=== PATIENT | female | born 1995 | race Caucasian/White ===

== ENCOUNTER 2021-08-02 21:55 | Emergency (ER) | payer OTHER ==
[2021-08-02 22:11] LABS: BASOPHILS # (AUTO) 0.1 10^3/uL (0.0-0.1); BASOPHILS % (AUTO) 0.6 %; EOSINOPHILS # (AUTO) 0.1 10^3/uL (0.0-0.7); EOSINOPHILS % (AUTO) 0.5 %; HCT - HEMATOCRIT 42.3 % (37.0-47.0); HGB - HEMOGLOBIN 13.8 g/dL (12.0-16.0); LYMPHOCYTES # (AUTO) 3.5 10^3/uL (1.5-3.5); LYMPHOCYTES % (AUTO) 36.4 %; MEAN CORPUSCULAR HEMOGLOBIN 31.7 pg (27.0-31.0); MEAN CORPUSCULAR HGB CONC 32.6 g/dL (32.0-36.0); MEAN PLATELET VOLUME 10.3 fL (7.9-10.8); MONOCYTES # (AUTO) 0.9 10^3/uL (0.0-1.0); MONOCYTES % (AUTO) 9.4 %; NEUTROPHILS % (AUTO) 52.8 %; PLT - PLATELET COUNT 287 10^3/uL (130-450); RED BLOOD COUNT 4.36 10^6/uL (4.20-5.40); RED CELL DISTRIBUTION WIDTH 11.6 % (12.0-15.0); WHITE BLOOD COUNT 9.5 x10^3/uL (4.8-10.8)
[2021-08-02] MEDS ORDERED: ADENOSINE 6 MG/2 ML VIAL IVP ONE (22:12)
[2021-08-02 22:26] LABS: ALBUMIN 4.8 g/dL (3.2-5.5); ALBUMIN/GLOBULIN RATIO 1.7 (1.0-2.2); BILIRUBIN,TOTAL 0.6 mg/dL (0.2-1.0); CALCIUM 9.5 mg/dL (8.5-10.3); CREATININE 0.8 mg/dL (0.4-1.0); POTASSIUM 3.2 mmol/L (3.5-5.0); TOTAL PROTEIN 7.7 g/dL (6.7-8.2)
[2021-08-02] MEDS ORDERED: POTASSIUM CHLORIDE 20 MEQ/15 ML UDC PO STA (22:31)
--- NOTE | 2021-08-02 22:32 | ED Physician Documentation ---
History of Present Illness - Stated complaint Stated Complaint: SOA/DIZZY/ELEVATED HEART RATE - Chief complaint Chief Complaint: Cardiac - History obtained from History obtained from: Patient - Additonal information Additional information: 25-year-old woman with history of SVT presents with palpitations starting around 945 this evening while working. She states that she felt normal earlier in the day and feels normal now except for some lightheadedness and palpitations. She attempted vagal maneuvers prior to coming in but was unsuccessful. Denies chest pain, shortness of breath, nausea. Review of Systems Ten Systems: 10 systems reviewed and negative Constitutional: denies: Fever Cardiac: reports: Palpitations. 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 - Past Surgical History Past Surgical History: No - Present Medications Home Medications: Ambulatory Orders Medication Instructions Recorded Confirmed atenoloL [Tenormin] 25 mg PO DAILY PRN 08/02/21 08/02/21 - Allergies Allergies/Adverse Reactions: Allergies Allergy/AdvReac Type Severity Reaction Status Date / Time No Known Drug Allergies Allergy Verified 08/02/21 22:00 - Social History Does the pt smoke?: No Smoking Status: Never smoker Does the pt have substance abuse?: No - Immunizations Immunizations are current?: Yes - POLST Patient has POLST: No PD ED PE NORMAL - Vitals Vital signs reviewed: Yes - General General: Alert and oriented X 3, No acute distress, Well developed/nourished - HEENT HEENT: Atraumatic, PERRL, EOMI, Moist mucous membranes - Neck Neck: Supple, no meningeal sign - Cardiac Cardiac: Other (Tachycardic rate, regular rhythm) - Respiratory Respiratory: No respiratory distress, Clear bilaterally - Abdomen Abdomen: Non tender, Non distended - Derm Derm: Normal color, Warm and dry - Extremities Extremities: No deformity - Neuro Neuro: Alert and oriented X 3 - Psych Psych: Normal mood, Normal affect Results - Vitals Vitals: Vital Signs - 24 hr 08/02/21 08/02/21 08/02/21 22:00 22:10 22:12 Temperature 36.5 C Heart Rate 200 H 208 H 177 H Respiratory 20 29 H 20 Rate Blood Pressure 133/94 H 116/93 H 131/92 H O2 Saturation 98 100 100 08/02/21 08/02/21 08/02/21 22:18 22:23 22:37 Temperature Heart Rate 100 92 94 Respiratory 15 25 H 23 Rate Blood Pressure 132/92 H 121/99 H 119/81 H O2 Saturation 100 98 99 Oxygen O2 Source Nasal cannula Oxygen Flow Rate 2 - EKG (time done) 2205 Rate: Rate (enter#) (173) Rhythm: Sinus tachycardia [place]: Normal QRS: Normal Ischemia: Normal ST segments Other comments: Other comments (no discernable P waves) Computer interpretation: Disagree with computer (EKG is c/w SVT) 2215 Rate: Rate (enter#) (107) Rhythm: NSR [place]: Normal Intervals: Normal NC QRS: Normal Ischemia: Normal ST segments - Labs Labs: Laboratory Tests 08/02/21 08/02/21 08/02/21 22:05 22:05 22:05 WBC 9.5 RBC 4.36 Hgb 13.8 Hct 42.3 MCV 97.0 MCH 31.7 H MCHC 32.6 RDW 11.6 L Plt Count 287 MPV 10.3 Neut # (Auto) 5.0 Lymph # (Auto) 3.5 [place] # (Auto) 0.9 Eos # (Auto) 0.1 Baso # (Auto) 0.1 Absolute Nucleated RBC 0.00 Nucleated RBC % 0.0 Sodium 140 Potassium 3.2 L Chloride 103 Carbon Dioxide 26 Anion Gap 11.0 BUN 19 Creatinine 0.8 Estimated GFR (MDRD) 86 L Glucose 114 H Calcium 9.5 Total Bilirubin 0.6 AST 26 ALT 20 Alkaline Phosphatase 62 Troponin I High Sens 3.5 Total Protein 7.7 Albumin 4.8 Globulin 2.9 Albumin/Globulin Ratio 1.7 Lipase 37 Procedures - General procedure General procedure: Patient presented with tachyarrhythmia consistent with SVT. Vagal maneuvers attempted (blowing to 10 cc syringe and lying down with legs up) without success. 6 mg IV adenosine then administered with out improvement and then 12 of IV adenosine administered with reversion to normal sinus rhythm. Patient tolerated well. She was on the teletypesetter monitor and had no issues. 100% oxygen on RA however 2 L of nasal cannula oxygen was administered during procedure for comfort then removed thereafter. PD MEDICAL DECISION MAKING - ED course ED course: 25-year-old woman presented in SVT, resolved after adenosine. She is asymptomatic after period of observation in the emergency department and her lab work was noncontributory with the exception of mild hypokalemia which was treated with supplemental potassium. 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 Departure - Departure Disposition: 01 Home, Self Care Clinical Impression: SVT (supraventricular tachycardia) Condition: Good Instructions: Understanding Supraventricular Tachycardia SVT Comments: You're seen in the emergency department for SVT. We attempted vagal maneuvers then gave you adenosine 6 mg and adenosine 12 mg with improvement in your heart rate and resolution to a normal rhythm. Please return to the emergency department immediately if you experience recurrent symptoms, have chest pain, shortness of breath, lightheadedness, any new or worsening symptoms or other concerns. Follow-up with electrophysiology and with your hr specialist.
--- NOTE | 2021-08-02 23:17 | XRAY Report ---
PROCEDURE: Chest 1 View X-Ray INDICATIONS: Chest pain TECHNIQUE: One view of the chest was acquired. COMPARISON: None FINDINGS: Surgical changes and devices: None. Lungs and pleura: No pleural effusions or pneumothorax. Lungs are clear. Mediastinum: Mediastinal contours appear normal. Heart size is normal. Bones and chest wall: No suspicious bony lesions. Overlying soft tissues appear unremarkable. IMPRESSION: No acute cardiopulmonary findings Reviewed by: Gallo Lema MD on 08/02/2021 10:15 PM [facility] Approved by: Gallo Lema MD on 08/02/2021 10:15 PM [facility] Station ID: [id number]
[2021-08-02 23:37] VITALS: BP 118/72
== END 2021-08-02 23:30 | disposition home or self-care (01) ==
LOC: ED 21:55
DX: I47.1 Supraventricular tachycardia (principal); E87.6 Hypokalemia
CPT/HCPCS: 36415; 71045; 80053; 83690; 84484; 85025; 93005; 96374; 99284; 99285; A9270; J0153

== ENCOUNTER 2021-11-04 20:04 | Outpatient (CLI) | payer OTHER | END 2021-11-04 20:05 | disposition critical access hospital (66) | LOC: EMS 20:04 | DX: M25.572 Pain in left ankle and joints of left foot (principal); V00.121A Fall from non-in-line roller-skates, initial encounter; Y93.51 Activity, roller skating (inline) and skateboarding; Y92.838 Other recreation area as the place of occurrence of the external cause | CPT/HCPCS: A0425; A0427 ==

== ENCOUNTER 2021-11-04 20:25 | Emergency (ER) | payer OTHER ==
--- NOTE | 2021-11-04 21:12 | XRAY Report ---
PROCEDURE: Ankle 3 View LT INDICATIONS: fall, rollerskating, leg/ankle pain TECHNIQUE: 3 views of the ankle were acquired. COMPARISON: None FINDINGS: Bones: Spiral fracture of the distal fibula above the syndesmosis. Soft tissues: No tibiotalar joint effusion. Achilles tendon appears normal. IMPRESSION: Distal fibular fracture above the syndesmosis. Reviewed by: Ryland Salamanca on 11/04/2021 9:10 PM [facility] Approved by: Ryland Salamanca on 11/04/2021 9:10 PM [facility] Station ID: [id number]
--- NOTE | 2021-11-04 21:13 | XRAY Report ---
PROCEDURE: Tib/Fib LT INDICATIONS: fall, rollerskating, leg/ankle pain TECHNIQUE: 2 views of the tibia and fibula were acquired. COMPARISON: None FINDINGS: Bones: There is a spiral distal fibular fracture above the syndesmosis.. No suspicious bony lesions. Soft tissues: No suspicious soft tissue calcifications or masses. IMPRESSION: Spiral distal fibular fracture above the syndesmosis. Reviewed by: Ryland Salamanca on 11/04/2021 9:12 PM PST Approved by: Ryland Salamanca on 11/04/2021 9:12 PM PST Station ID: [id number]
--- NOTE | 2021-11-04 21:18 | ED Physician Documentation ---
PD HPI LOWER EXT INJURY - Stated complaint Stated Complaint: LT ANKLE INJURY - Chief complaint Chief Complaint: Ext Problem - History obtained from History obtained from: Patient, EMS - History of Present Illness PD HPI LOW EXT INJURY LOCATION: Left Type of injury: Fall, Twist Pain level max: 9 Pain level now: 3 Improved by: Rest, Immobilization Worsened by: Moving, Palpating - Additional information Additional information: 25-year-old female presents to the emergency department left ankle injury while rollerskating today. She fell and twisted the left ankle. Worse with movement, better with rest. Better with fentanyl and splinting. 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 - Past Surgical History Past Surgical History: No - Present Medications Home Medications: Ambulatory Orders Medication Instructions Recorded Confirmed Ondansetron Odt [Zofran] 4 mg TL Q6H PRN #10 tablet 11/04/21 Oxycodone HCl/Acetaminophen 1 - 2 each PO Q6H PRN #14 tablet 11/04/21 [Percocet 5-325 mg Tablet] - Allergies Allergies/Adverse Reactions: Allergies Allergy/AdvReac Type Severity Reaction Status Date / Time No Known Drug Allergies Allergy Verified 11/04/21 20:29 - Social History Does the pt smoke?: No Smoking Status: Never smoker Does the pt drink ETOH?: No Does the pt have substance abuse?: No - Immunizations Immunizations are current?: Yes - POLST Patient has POLST: No PD ED PE NORMAL - Vitals Vital signs reviewed: Yes - General General: Alert and oriented X 3, No acute distress - HEENT HEENT: Moist mucous membranes - Neck Neck: Supple, no meningeal sign - Cardiac Cardiac: RRR - Respiratory Respiratory: No respiratory distress, Clear bilaterally - Derm Derm: Warm and dry - Extremities Extremities: Other (Tender to palpation over the distal fibula, left lower leg. Otherwise normal examination of the left lower leg, foot and ankle. NVI) - Neuro Neuro: Alert and oriented X 3 - Psych Psych: Normal mood, Normal affect Results - Vitals Vitals: Vital Signs - 24 hr 11/04/21 11/04/21 11/04/21 20:26 21:11 21:22 Temperature 36.4 C L Heart Rate 96 100 Respiratory 18 16 16 Rate Blood Pressure 134/88 H 115/95 H O2 Saturation 100 100 11/04/21 11/04/21 21:49 22:01 Temperature Heart Rate Respiratory 16 16 Rate Blood Pressure O2 Saturation Oxygen O2 Source Room air - Rads (name of study) Left ankle x-ray Radiology: Final report received, EMP read contemporaneously, See rad report (Distal fibular fracture above the syndesmosis) L tib/fib xray Radiology: Final report received, EMP read contemporaneously, See rad report (Distal fibular fracture above the syndesmosis) Procedures - Splint (location) LLE Splint applied by: Physician Type of splint: Fiberglass, Short leg, Posterior, Stirrup Other: Patient tolerated well, No complications, Neurovascular intact, Crutches provided PD MEDICAL DECISION MAKING - ED course Complexity details: reviewed results, re-evaluated patient, considered differential, d/w patient ED course: 25-year-old female with a distal fibula fracture. Placed in a short leg posterior splint with stirrups. Tolerated well. Neurovascularly intact. Pain well controlled. We will have her follow-up with orthopedics for further care. I am prescribing a short course of short-acting opioid pain medication for this patient. I have reviewed the patients RESIDENT CARE AIDE and no concerning findings were noted. I have discussed that the opioids are for short term therapy only, and will not be refilled from the ED. patient counseled regarding signs and symptoms for which I believe and urgent re-evaluation would be necessary. Patient with good understanding of and agreement to plan and is comfortable going home at this time This document was made in part using voice recognition software. While efforts are made to proofread this document, sound alike and grammatical errors may occur. Departure - Departure Disposition: 01 Home, Self Care Clinical Impression: Fibula fracture Qualifiers: Encounter type: initial encounter Fibula location: shaft Fracture type: closed Fracture morphology: spiral Fracture alignment: nondisplaced Laterality: left Qualified Code(s): S82.445A - Nondisplaced spiral fracture of shaft of left fibula, initial encounter for closed fracture Condition: Good Instructions: ED Fx Lower Ext Follow-Up: Carlos Alberto Alex DO [Primary Care Provider] - [facility] [Provider Group] - Within 1 week Prescriptions: Oxycodone HCl/Acetaminophen [Percocet 5-325 mg Tablet] 1 - 2 each PO Q6H PRN #14 tablet PRN Reason: pain Ondansetron Odt [Zofran] 4 mg TL Q6H PRN #10 tablet PRN Reason: Nausea / Vomiting Comments: It is important that you follow-up with orthopedics within about a week. You have a left fibula fracture. Do not bear weight until you see orthopedics. Your prescription was sent to [facility] in [place]. Discharge Date/Time: 11/04/21 22:16
[2021-11-04 21:23] VITALS: BP 115/95
[2021-11-04] MEDS ORDERED: oxyCODONE 5 MG TABLET PO STA (21:40)
[2021-11-04] MEDS ORDERED: ONDANSETRON ODT 4 MG TABLET TL STA (21:40)
[2021-11-04] MEDS ORDERED: oxyCODONE/ACET 5/325 Prepack 4 PO STA (22:03)
== END 2021-11-04 22:16 | disposition home or self-care (01) ==
LOC: ED 20:25
DX: S82.445A Nondisplaced spiral fracture of shaft of left fibula, initial encounter for closed fracture (principal); V00.121A Fall from non-in-line roller-skates, initial encounter; Y93.51 Activity, roller skating (inline) and skateboarding; Y92.331 Roller skating rink as the place of occurrence of the external cause
CPT/HCPCS: 29515; 73590; 73610; 99283; 99284; A9270; Q0162

== ENCOUNTER 2022-08-19 18:40 | Outpatient (CLI) | payer OTHER ==
--- NOTE | 2022-08-20 03:35 | Ultrasound Report ---
PROCEDURE: Pelvic w/Transvaginal INDICATIONS: IUD SURVEILLANCE TECHNIQUE: Real-time scanning was performed of the pelvic organs, with image documentation. Additional endovagi nal scanning was necessary due to incomplete visualization of the adnexal and endometrial structures by transabdominal scanning. COMPARISON: None. FINDINGS: Uterus: Uterus is retroverted and measures 7.5 x 3.5 x 4.6 cm. The endometrium measures up to 0.4 cm in thickness. An IUD is demonstrated within the endometrium extending to the level of the mid uterus . The IUD arms are slightly asymmetric, with suggestion of mild myometrial migration of the right arm . Ovaries: The right ovary measures 3.3 x 1.6 x 3.7 cm, with a calculated ovarian volume of 10.1 cc. The left ovary measures 2.2 x 1.5 x 2.2 cm, with a calculated ovarian volume of or cc. The ovaries h ave a normal sonographic appearance. Less than 12 follicles can be seen in each ovary. No adnexal m asses. There is Other: No pathologic free abdominal or pelvic fluid. IMPRESSION: 1. IUD demonstrated within the endometrium, extending to the level of the mid uterus. 2. Mild asymmetry of the IUD arms, with suggestion of mild myometrial migration on the right. Reviewed by: Wilmer Almendarez MD on 08/20/2022 3:34 AM PST Approved by: Wilmer Almendarez MD on 08/20/2022 3:34 AM PST Station ID: [id number]
== END 2022-08-19 18:41 | disposition home or self-care (01) ==
LOC: DI 18:40
PROVIDERS: ATTEND Physician Assistant
DX: R10.32 Left lower quadrant pain (principal); R10.2 Pelvic and perineal pain; N92.1 Excessive and frequent menstruation with irregular cycle; Z97.5 Presence of (intrauterine) contraceptive device

== ENCOUNTER 2023-01-29 12:03 | Outpatient (CLI) | payer OTHER | END 2023-01-29 12:04 | disposition home or self-care (01) | LOC: LAB 12:03 | PROVIDERS: ATTEND Obstetrics & Gynecology | DX: O20.0 Threatened abortion (principal) | CPT/HCPCS: 36415; 84702 ==

== ENCOUNTER 2023-01-31 10:11 | Outpatient (CLI) | payer OTHER | END 2023-01-31 10:12 | disposition home or self-care (01) | LOC: LAB 10:11 | PROVIDERS: ATTEND Obstetrics & Gynecology | DX: O20.0 Threatened abortion (principal) | CPT/HCPCS: 36415; 84702 ==

== ENCOUNTER 2023-02-08 18:38 | Emergency (ER) | payer OTHER ==
[2023-02-08 19:12] LABS: BASOPHILS # (AUTO) 0.1 10^3/uL (0.0-0.1); BASOPHILS % (AUTO) 0.7 %; EOSINOPHILS # (AUTO) 0.1 10^3/uL (0.0-0.7); EOSINOPHILS % (AUTO) 0.6 %; HCT - HEMATOCRIT 38.5 % (37.0-47.0); HGB - HEMOGLOBIN 12.7 g/dL (12.0-16.0); LYMPHOCYTES # (AUTO) 2.2 10^3/uL (1.5-3.5); LYMPHOCYTES % (AUTO) 24.6 %; MEAN CORPUSCULAR HEMOGLOBIN 31.6 pg (27.0-31.0); MEAN CORPUSCULAR VOLUME 95.8 fL (81.0-99.0); MEAN PLATELET VOLUME 10.5 fL (7.9-10.8); MONOCYTES # (AUTO) 0.7 10^3/uL (0.0-1.0); MONOCYTES % (AUTO) 8.1 %; NEUTROPHILS # (AUTO) 5.8 10^3/uL (1.5-6.6); NEUTROPHILS % (AUTO) 65.7 %; PLT - PLATELET COUNT 267 10^3/uL (130-450); RED BLOOD COUNT 4.02 10^6/uL (4.20-5.40); RED CELL DISTRIBUTION WIDTH 11.5 % (12.0-15.0); WHITE BLOOD COUNT 8.8 x10^3/uL (4.8-10.8)
[2023-02-08 19:26] LABS: ALBUMIN 4.3 g/dL (3.2-5.5); ALBUMIN/GLOBULIN RATIO 1.4 (1.0-2.2); BILIRUBIN,TOTAL 0.5 mg/dL (0.2-1.0); CREATININE 0.6 mg/dL (0.4-1.0); POTASSIUM 3.8 mmol/L (3.5-5.0); TOTAL PROTEIN 7.4 g/dL (6.7-8.2)
--- NOTE | 2023-02-08 20:14 | Ultrasound Report ---
PROCEDURE: OB First Trimester w/TV INDICATIONS: bleed in first trimester OUTSIDE/PRIOR DATING DATA: Last menstrual period (LMP): 12/04/2022. LMP-based estimated date of delivery (YANNI): 09/10/2023. First dating scan (date and location): 02/05/2023. Estimated date of delivery (YANNI) from first dating scan: 10/01/2023. TECHNIQUE: Real-time scanning was performed of the fetus and maternal pelvic organs, with image documentation. Endovaginal scanning was also performed to better visualize the fetus and maternal ovaries. COMPARISON: 02/05/2023 FINDINGS: Embryo: [place]-rump length of 0.5 cm corresponding to gestational age of 6 weeks 2 days Heart rate: 72 bpm 2.6 cm echogenic avascular structure within the gestational sac. Measurement variability in dating: +/- 4 weeks by LMP, +/- 7 days by mean sac diameter (use before 6 weeks gestation if crown-rump length not able to be measured), +/- 5 days by crown-rump length (6-12 weeks gestation). Maternal organs: Ovaries are unremarkable. Left corpus luteum. IMPRESSION: Single living intrauterine . heart rate is lower than expected/bradycardic, 72 bpm. Ad ditionally, a large avascular hyperechoic structure is present within the gestational sac, indetermin ate, possibly clot. Overall findings are nonspecific but raise the possibility of impending failure. Close clinical follow-up is recommended, repeat imaging can be obtained as clinically indic ated. Reviewed by: Néstor Braden MD on 02/08/2023 8:13 PM PDT Approved by: Néstor Braden MD on 02/08/2023 8:13 PM PDT Station ID: [id number]
--- NOTE | 2023-02-08 20:31 | ED Physician Documentation ---
History of Present Illness - Stated complaint Stated Complaint: BLEEDING - Chief complaint Chief Complaint: General - Additonal information Additional information: 27-year-old female presents to the emergency department for evaluation of vagi nal bleeding in the first trimester . . LMP 12/04/2022. Patient is being followed by Dr. Maxi Vaughan. Patient reports that she began having some spotting on January 29 or . She inter mittently again had spotting on the . She did have an ultrasound completed on 05 February that did show an IUP with a heart rate of 91. Today about 6 PM she began having heavy vaginal bleeding that she reports saturated her clothing. She denies fevers, abdominal pain vomiting or urinary symptoms. Review of Systems Constitutional: reports: Reviewed and negative Nose: reports: Reviewed and negative Throat: reports: Reviewed and negative Cardiac: reports: Reviewed and negative Respiratory: reports: Reviewed and negative GI: denies: Nausea, Vomiting : reports: LMP (12/04/2022), Vaginal bleeding. denies: Dysuria, Frequency Skin: reports: Reviewed and negative Musculoskeletal: reports: Reviewed and negative Neurologic: reports: Reviewed and negative PD PAST MEDICAL HISTORY - Past Medical History Cardiovascular: Other Respiratory: None Neuro: None Endocrine/Autoimmune: None GI: None NURSE OB: None : None HEENT: None Psych: None Musculoskeletal: None Derm: None - Past Surgical History Past Surgical History: No - Present Medications Home Medications: Ambulatory Orders Medication Instructions Recorded Confirmed Pnv No.163/Iron/Folate No.10 [Pnv 1 tab ORAL DAILY 02/08/23 02/08/23 Tabs 20-1 Tablet] - Allergies Allergies/Adverse Reactions: Allergies Allergy/AdvReac Type Severity Reaction Status Date / Time No Known Drug Allergies Allergy Verified 02/08/23 18:46 - Social History Does the pt smoke?: No Smoking Status: Never smoker Does the pt drink ETOH?: No Does the pt have substance abuse?: No - Immunizations Immunizations are current?: Yes - POLST Patient has POLST: No PD ED PE NORMAL - General General: Alert and oriented X 3, No acute distress, Well developed/nourished - HEENT HEENT: Atraumatic, Moist mucous membranes - Neck Neck: Supple, no meningeal sign, No adenopathy - Cardiac Cardiac: RRR, No murmur - Respiratory Respiratory: No respiratory distress, Clear bilaterally - Abdomen Abdomen: Normal bowel sounds, Soft. No: Non tender - Derm Derm: Normal color, Warm and dry, No rash - Extremities Extremities: No deformity, No tenderness to palpate, Normal ROM s pain - Neuro Neuro: Alert and oriented X 3 Eye Opening: Spontaneous Motor: Obeys Commands Verbal: Oriented GCS Score: 15 Results - Vitals Vitals: Vital Signs - 24 hr 02/08/23 18:41 Temperature 37.1 C Heart Rate 79 Respiratory 16 Rate Blood Pressure 117/74 O2 Saturation 100 Oxygen O2 Source Room air - Labs Labs: Laboratory Tests 02/08/23 02/08/23 02/08/23 19:07 19:07 19:07 WBC 8.8 RBC 4.02 L Hgb 12.7 Hct 38.5 MCV 95.8 MCH 31.6 H MCHC 33.0 RDW 11.5 L Plt Count 267 MPV 10.5 Neut # (Auto) 5.8 Lymph # (Auto) 2.2 [place] # (Auto) 0.7 Eos # (Auto) 0.1 Baso # (Auto) 0.1 Absolute Nucleated RBC 0.00 Nucleated RBC % 0.0 Sodium 138 Potassium 3.8 Chloride 104 Carbon Dioxide 24 Anion Gap 10.0 BUN 8 Creatinine 0.6 Estimated GFR (MDRD) 118 Glucose 111 H Calcium 9.0 Total Bilirubin 0.5 AST 22 ALT 21 Alkaline Phosphatase 58 Total Protein 7.4 Albumin 4.3 Globulin 3.1 Albumin/Globulin Ratio 1.4 Lipase 37 HCG, Quant Blood Type A POSITIVE 02/08/23 19:07 WBC RBC Hgb Hct MCV MCH MCHC RDW Plt Count MPV Neut # (Auto) Lymph # (Auto) [place] # (Auto) Eos # (Auto) Baso # (Auto) Absolute Nucleated RBC Nucleated RBC % Sodium Potassium Chloride Carbon Dioxide Anion Gap BUN Creatinine Estimated GFR (MDRD) Glucose Calcium Total Bilirubin AST ALT Alkaline Phosphatase Total Protein Albumin Globulin Albumin/Globulin Ratio Lipase HCG, Quant 76469.00 Blood Type - Rads (name of study) First trimester OB ultrasound Relevant Findings:: Final report received (Single live IUP with heart rate less than expected 72 bpm. Large avascular hyperechoic structure present within the gestational sac possibly clot. Findings are nonspecific but raise possibility of impending failure.) PD Medical Decision Making - ED course Complexity details: reviewed results, re-evaluated patient, considered differential, d/w patient ED course: 27-year-old female G1, P0 presents emergency department for evaluation of vaginal bleeding first trimester . LMP was 12/04/2022. He she began having some heavy vaginal bleeding about 6 PM though at subsequent currently subsided. The patient did have an ultrasound of this completed on 05 February which showed an IUP but a heart rate of only 92 bpm at that time. Today in the emergency department we did obtain a CBC, electrolytes and quant hCG. Per my interpretation no acute findings with the CBC or electrolytes. Her quant has doubled over the last week from 35,000 to now 72,000. Patient is also Rh+. We also obtained a OB first trimester ultrasound which did again confirm a live IUP but today the heart rate is 72, bradycardic in last than expected for gestational age. Also findings of a hyperechoic structure with in the gestational sac likely clot burden. This does raise the concern for possible impending failure. I discussed these findings with the patient at the bedside. She will follow closely with Dr. Vaughan. I discussed with her that first trimester miscarriages are typically more. Like bleeding episodes. I discussed the usual emergent return precautions for concerns of severe vaginal bleeding, racing heart rate syncope fevers and foul-smelling lochia. Departure - Departure Disposition: 01 Home, Self Care Clinical Impression: Incomplete miscarriage Condition: Stable Record reviewed to determine appropriate education?: Yes Instructions: ED Miscarriage Incom Follow-Up: Maxi Vaughan MD [Provider Admit Priv/Credential] - Comments: Yumiko you came to the emergency department today because you began having some heavier vaginal bleeding this afternoon. We did obtain your labs today and we do see that you have a rising hormone level in . However the ultrasound today showed a live intrauterine but the heart rate was lower than expected at 72 bpm. There was also a large hypoechoic structure within the gestational sac that is most likely clot. Overall these findings are nonspecific but they do raise the concern for possible failure or an incomplete miscarriage. Most women that have a miscarriage in the first trimester of can expect to have. Like vaginal bleeding. Is important you call Dr. Vaughan to discuss this ED visit. If you find that you are having heavier vaginal bleeding or saturating a pad or tampon every hour for 4 more hours, have any fainting ep isodes, develop any fevers then you should return immediately to the ER.
[2023-02-08 20:54] LABS: BILIRUBIN,URINE NEGATIVE (NEGATIVE); GLUCOSE, URINE (UA) NEGATIVE (NEGATIVE); KETONES,URINE (UA) NEGATIVE (NEGATIVE); LEUKOCYTE ESTERASE, URINE NEGATIVE (NEGATIVE); NITRITE,URINE NEGATIVE (NEGATIVE); OCCULT BLOOD,URINE LARGE (NEGATIVE); PH,URINE 6.5 PH (5.0-7.5); PROTEIN,URINE NEGATIVE (NEGATIVE); UROBILINOGEN,URINE 0.2 (NORMAL) E.U./dL (NORMAL)
[2023-02-08 20:58] LABS: CLARITY,URINE SL. CLOUDY (CLEAR)
[2023-02-08 21:01] VITALS: BP 110/85
[2023-02-08 21:13] LABS: RBC,URINE 0-5 /HPF (0-5); WBC,URINE 0-3 /HPF (0-5)
[2023-02-08 21:14] LABS: BACTERIA,URINE None Seen /HPF (None Seen); SQUAMOUS EPITHELIAL CELL,UR RARE Squamous (<= Few)
== END 2023-02-08 21:00 | disposition home or self-care (01) ==
LOC: ED 18:38
DX: O03.4 Incomplete spontaneous abortion without complication (principal)
CPT/HCPCS: 36415; 80053; 81001; 81003; 83690; 84702; 85025; 86900; 86901; 87086; 99283; 99284

== ENCOUNTER 2023-02-25 14:07 | Outpatient (CLI) | payer OTHER | END 2023-02-25 14:08 | disposition home or self-care (01) | LOC: LAB 14:07 | PROVIDERS: ATTEND Obstetrics & Gynecology | DX: O02.1 Missed abortion (principal) | CPT/HCPCS: 36415; 84702 ==

== ENCOUNTER 2023-03-05 16:37 | Outpatient (CLI) | payer OTHER | END 2023-03-05 16:38 | disposition home or self-care (01) | LOC: LAB 16:37 | PROVIDERS: ATTEND Obstetrics & Gynecology | DX: O02.1 Missed abortion (principal) | CPT/HCPCS: 36415; 84702 ==

== ENCOUNTER 2023-03-18 11:22 | Outpatient (CLI) | payer OTHER | END 2023-03-18 11:23 | disposition home or self-care (01) | LOC: LAB 11:22 | PROVIDERS: ATTEND Obstetrics & Gynecology | DX: O02.1 Missed abortion (principal) | CPT/HCPCS: 36415; 84702 ==

== ENCOUNTER 2023-03-31 11:41 | Outpatient (CLI) | payer OTHER | END 2023-03-31 11:42 | disposition home or self-care (01) | LOC: LAB 11:41 | PROVIDERS: ATTEND Obstetrics & Gynecology | DX: O02.1 Missed abortion (principal) | CPT/HCPCS: 36415; 84702 ==

== ENCOUNTER 2023-04-28 10:25 | Outpatient (CLI) | payer OTHER | END 2023-04-28 10:26 | disposition home or self-care (01) | LOC: LAB 10:25 | PROVIDERS: ATTEND Obstetrics & Gynecology | DX: O02.1 Missed abortion (principal) | CPT/HCPCS: 36415; 84702 ==

== ENCOUNTER 2023-05-11 12:15 | Outpatient (CLI) | payer OTHER | END 2023-05-11 12:16 | disposition home or self-care (01) | LOC: LAB 12:15 | PROVIDERS: ATTEND Obstetrics & Gynecology | DX: O02.1 Missed abortion (principal) | CPT/HCPCS: 36415; 84702 ==

== ENCOUNTER 2023-05-26 16:03 | Outpatient (CLI) | payer OTHER | END 2023-05-26 16:04 | disposition home or self-care (01) | LOC: LAB 16:03 | PROVIDERS: ATTEND Obstetrics & Gynecology | DX: O02.1 Missed abortion (principal) | CPT/HCPCS: 36415; 84702 ==

== ENCOUNTER 2023-08-10 08:00 | Outpatient (CLI) | payer OTHER ==
[2023-08-11 14:16] LABS: BACTERIAL VAGINOSIS DNA POSITIVE (NEGATIVE); CANDIDA GLABRATA DNA NEGATIVE (NEGATIVE); CANDIDA GROUP DNA NEGATIVE (NEGATIVE); CANDIDA KRUSEI DNA NEGATIVE (NEGATIVE); TRICHOMONAS VAGINALIS DNA NEGATIVE (NEGATIVE)
== END 2023-08-10 08:01 | disposition home or self-care (01) ==
LOC: LAB.WC 08:00
PROVIDERS: ATTEND Obstetrics & Gynecology
DX: N89.8 Other specified noninflammatory disorders of vagina (principal)
CPT/HCPCS: 81514

== ENCOUNTER → 2023-09-09 | Outpatient (CLI) | payer OTHER ==
[2023-09-09 19:39] LABS: BASOPHILS # (AUTO) 0.1 10^3/uL (0.0-0.1); EOSINOPHILS # (AUTO) 0.1 10^3/uL (0.0-0.7); HCT - HEMATOCRIT 38.4 % (37.0-47.0); HGB - HEMOGLOBIN 12.6 g/dL (12.0-16.0); LYMPHOCYTES # (AUTO) 2.3 10^3/uL (1.5-3.5); LYMPHOCYTES % (AUTO) 29.8 %; MEAN CORPUSCULAR HEMOGLOBIN 31.2 pg (27.0-31.0); MEAN CORPUSCULAR HGB CONC 32.8 g/dL (32.0-36.0); MEAN PLATELET VOLUME 11.7 fL (7.9-10.8); MONOCYTES # (AUTO) 0.7 10^3/uL (0.0-1.0); MONOCYTES % (AUTO) 8.5 %; NEUTROPHILS # (AUTO) 4.6 10^3/uL (1.5-6.6); NEUTROPHILS % (AUTO) 59.6 %; PLT - PLATELET COUNT 260 10^3/uL (130-450); RED BLOOD COUNT 4.04 10^6/uL (4.20-5.40); RED CELL DISTRIBUTION WIDTH 11.9 % (12.0-15.0); WHITE BLOOD COUNT 7.8 x10^3/uL (4.8-10.8)
== END ==
LOC: LAB 15:35
PROVIDERS: ATTEND Obstetrics & Gynecology
DX: Z01.812 Encounter for preprocedural laboratory examination (principal); N93.9 Abnormal uterine and vaginal bleeding, unspecified; R93.89 Abnormal findings on diagnostic imaging of other specified body structures
CPT/HCPCS: 36415; 81025; 85025

== ENCOUNTER 2023-09-14 08:42 | Day surgery (SDC) | payer OTHER ==
[2023-09-14] MEDS ORDERED: LACTATED RINGERS 1,000 ML IV ONE ×2 (08:57→11:16)
[2023-09-14 09:12] LABS: HCG UR QUAL NEGATIVE
[2023-09-14] MEDS ORDERED: MIDAZOLAM 2 MG/2 ML VIAL ONE (09:23)
[2023-09-14] MEDS ORDERED: PROPOFOL 200 MG/20 ML VIAL IVP ONE (09:23)
[2023-09-14] MEDS ORDERED: fentaNYL 100 MCG/2 ML VIAL ONE (09:23)
[2023-09-14] MEDS ORDERED: SILVER NITRATE APPLICATOR TOP ONE (09:34)
[2023-09-14] MEDS ORDERED: LIDOCAINE 1%-EPI 1:100000 20 ML MDV ONE (09:34)
[2023-09-14] MEDS ORDERED: BUPIVACAINE 0.5% PF 10 ML VIAL ONE (09:35)
--- NOTE | 2023-09-14 09:37 | ANESTHESIA ---
Pre-Anesthesia VS, & Labs - Diagnosis abnormal uterine bleeding - Procedure hysteroscopy, D&C, myoshure, polypectomy, pap Height: 5 ft 6 in Weight (kg): 64.1 kg Body Mass Index: 22.8 BMI Classification: Normal - NPO >8 hours - Is Patient ?: No Home Medications and Allergies Home Medications: Ambulatory Orders No Known Home Medications 09/08/23 No Known Home Medications 09/08/23 Allergies/Adverse Reactions: Allergies Allergy/AdvReac Type Severity Reaction Status Date / Time No Known Drug Allergies Allergy Verified 09/14/23 09:13 Anes History & Medical History - Anesthetic History Anesthesia Complications: reports: No previous complications - Medical History Cardiovascular: reports: Arrhythmia (SVT, had ablation), Other Pulmonary: reports: None Gastrointestinal: reports: None Urinary: reports: None Neuro: reports: None Musculoskeletal: reports: Other (jaw surgery, dental, malpositoned teeth in sinuses) Endocrine/Autoimmune: reports: None Blood Disorders: reports: None Skin: reports: None Smoking Status: Never smoker History of Cancer?: No - Surgical History Cardiothoracic: reports: Other Orthopedic: reports: Other Exam General: Alert, Oriented x3 Dental: WNL Mouth Opening: Greater than 4 Fingerbreadths Neck Mobility: Normal Mallampati classification: II Respiratory: Lungs clear Cardiovascular: Regular rate, Normal S1, Normal S2 Plan Anesthesia Type: General Consent for Procedure(s) Verified and Reviewed: Yes Code Status: Attempt Resuscitation ASA classification: 2-Mild systemic disease Is this case an emergency?: No
[2023-09-14] MEDS ORDERED: MORPHINE 2 MG/ML CARPUJECT IVP PRN (09:42)
[2023-09-14] MEDS ORDERED: HYDROmorphone 0.5 MG/0.5 ML SYRINGE IVP PRN (09:42)
[2023-09-14] MEDS ORDERED: NALOXONE 0.4 MG/ML VIAL IVP PRN (09:42)
[2023-09-14] MEDS ORDERED: ONDANSETRON 4 MG/2 ML VIAL IVP PRN (09:42)
[2023-09-14] MEDS ORDERED: METOCLOPRAMIDE 10 MG/2 ML VIAL IVP PRN (09:42)
[2023-09-14] MEDS ORDERED: ePHEDrine 50 MG/ML VIAL IVP PRN (09:42)
[2023-09-14] MEDS ORDERED: ATROPINE ABBOJECT 1 MG/10 ML SYRINGE IVP PRN (09:42)
[2023-09-14] MEDS ORDERED: fentaNYL 100 MCG/2 ML VIAL IVP PRN (09:42)
[2023-09-14] MEDS ORDERED: LACTATED RINGERS 1,000 ML IV SCH (10:00)
[2023-09-14] MEDS ORDERED: ONDANSETRON 4 MG/2 ML VIAL ONE (10:27)
[2023-09-14] MEDS ORDERED: DEXAMETHASONE 4 MG/ML VIAL ONE (10:27)
[2023-09-14] MEDS ORDERED: LIDOCAINE 1%-EPI 1:100000 20 ML MDV SUBQ ONE ×2 (10:37)
[2023-09-14] MEDS ORDERED: KETOROLAC 30 MG/ML VIAL ONE (11:04)
[2023-09-14] MEDS ORDERED: HYDROcod/ACETAM 5/325 MG TABLET PO PRN (11:10)
--- NOTE | 2023-09-14 11:16 | OPERATIVE REPORT ---
Operative Report - General Procedure Date: 09/14/23 Planned Procedure: Hysteroscopy, D&C, polypectomy, Pap smear Pre-Op Diagnosis: Thickened endometrium Procedure Performed: Hysteroscopy, D&C, polypectomy, Pap smear Post Op Diagnosis: Thickened endometrium - Procedure Note Primary Surgeon: Maxi Vaughan MD Anesthesia Provider: Pablo Woods CRNA Anesthesia Technique: Other (IV general) Pathology: Endometrial curettings IV Fluids (mL): 600 Estimated Blood Loss (mL): 5 Urine Output (mL): 0 (Voided prior to procedure) Findings: Proliferative appearing endometrium with a hypervascular, possible polyp in the posterior fundus. Complications: None - Other Other Information/Narrative: Patient was taken to the procedure room and placed in dorsal lithotomy position. A Pap smear is collected. Hibiclens was used to clean the operative area. [place] speculum was palced in the vagina and the cervix was visualized. The anterior lip the cervix was grasped with a single-tooth tenaculum. The cervix was non-stenotic and allowed the easy passage of dilators. Hysteroscope was then used to hydrodilate using normal saline distention media. Hysteroscope was advanced without difficulty using hydrodistention. Cervical canal was noted to have no lesions. Upon entry into the internal cervical os there was noted to be proliferative endometrium within the uterus. She had a violaceous, vascular appearing lesion in the posterior fundus that was removed. No significant bleeding was noted. Bilateral tubal ostia were more difficult to see, but after resecting some of the endometrium, these were visible. Hysteroscope was then removed. Tenaculum was then removed from the cervix noted to be hemostatic. All instruments removed from the vagina Fluid deficit 335 ml.
[2023-09-14 11:54] VITALS: O2SAT 100
[2023-09-14 12:04] VITALS: BP 103/61
--- NOTE | 2023-09-14 13:30 | ANESTHESIA POST OP EVALUATION ---
Anesthesia Post Eval - Post Anesthesia Eval Vitals: Last Vital Signs Temp 36.5 C 09/14/23 11:59 Pulse 65 09/14/23 11:59 Resp 16 09/14/23 11:59 BP 103/61 09/14/23 11:59 Pulse Ox 100 09/14/23 11:59 O2 Flow Rate CV Function Including HR & BP: Stable Pain Control: Satisfactory Nausea & Vomiting: Negative Mental Status: Baseline Respiratory Status: Airway Patent Hydration Status: Satisfactory Anesthesia Complications: None
== END 2023-09-14 08:43 | disposition home or self-care (01) ==
LOC: SDS 08:42
PROVIDERS: ATTEND Obstetrics & Gynecology
PROC: 0UDB8ZZ Extraction of Endometrium, Via Natural or Artificial Opening Endoscopic (ICD-10-PCS; principal; 2023-09-14 10:00)
DX: N93.9 Abnormal uterine and vaginal bleeding, unspecified (principal); R93.89 Abnormal findings on diagnostic imaging of other specified body structures; N85.9 Noninflammatory disorder of uterus, unspecified; R10.2 Pelvic and perineal pain
CPT/HCPCS: 58558; 81025; J7120